=== PATIENT | male | born 1945 | race Caucasian/White ===

== ENCOUNTER → 2016-07-28 | Day surgery (SDC) | payer OTHER ==
[~2016-07-28] VITALS: Ht 170.2 cm; Wt 80.0 kg
[~2016-07-28] MED LIST: ACET-1311 PO; ACETAMINOPHEN 325 MG TAB PO PRN; ARTIOIN OP; ASPI81TA28 PO; ASPIRIN 81 MG CHEW ONE; ATORVASTATIN 40 MG TAB PO SCH; BUPR75TA20 PO; CHOL1000 PO; FENTANYL CITRATE INJ 50 MCG/1 ML 2 ML VIAL ONE; FINA5TAB PO; FLUT0.15 NAE; FURO-85 PO; GABA-113 PO; HEPARIN SOD (PORCINE) 1000 UNIT/ML 10 ML VIAL ONE; HYDR25TA5 PO; LOSA50TA6 PO; LPT40 PO; MELA1TAB5 PO; METO100T44 PO; MIDAZOLAM HCL 1 MG/ML 2ML VIAL ONE; NITROGLYCERIN/D5W 100MCG/ML 20ML SYR ONE; NiCARDipine HCL INJ 2.5 MG/ML 10 ML AMP ONE; ONDANSETRON INJ 2 MG/ML 2 ML VIAL IV PRN; SERT-234 PO; SODIUM CHLORIDE 0.9% 1000ML 1,000 ML IV SCH; SODIUM CHLORIDE 0.9% 1000ML 250 ML IV PRN; SYMIN/8045 NEB; VNTHFA/IN INH
[2016-07-28 07:00] VITALS: BP 162/84; PULSE 64; TEMP 36.3; O2SAT 96; Ht 170.2 cm; Wt 80.0 kg
[2016-07-28 07:49] LABS: HEMATOCRIT 41.2 % (42-52); MEAN CELL VOLUME 89.6 fL (80-100); MEAN CORPUSCULAR HEMOGLOBIN 31.7 pg (25-34); MEAN PLATELET VOLUME 9.2 fL (7.4-10.4); PLATELET COUNT 161 K/uL (130-400); WHITE BLOOD COUNT 7.11 K/uL (4.8-10.8)
[2016-07-28 07:52] LABS: MEAN CORPUSCULAR HGB CONC 35.4 g/dl (32-36)
--- NOTE | 2016-07-28 07:56 | Procedure Note ---
Pre-Mod Sedation Assessment General Date of Moderate Sedation: Jul 28, 2016. Vital Signs: Vital Signs Past 12 Hours Date Time Temp Pulse Resp B/P Pulse Ox O2 Delivery O2 Flow Rate FiO2 07/28/16 07:00 36.3 64 18 162/84 96 Room Air Review Cardiovascular: regular rate, rhythm Abdomen: soft Lungs: lungs clear Pre-Sedation Airway Assessment Oral Cavity: Dentures Short Thick Neck: No Hx of Sleep Apnea: No Smoking Status: Former Smoker Procedure Planning Contraindications-for Mod Sed: None Yes Notes The planned sedation has been discussed with the patient and consent obtained. I have identified the patient, determined the appropriateness of sedation and have assessed the patient immediately prior to the procedure. All medicine(s) and interventions are by my order.
--- NOTE | 2016-07-28 07:57 | History & Physical Bridge Note ---
H&P Re-Evaluation Bridge Note: I have examined the patient, reviewed the History & Physical and in the interval since the performance of the History & Physical I have noted the following changes of clinical significance: He feels no significant improvement on lasix, but did lose 2.5 lbs. Otherwise, No changes noted
[2016-07-28 07:58] LABS: PROTHROMBIN TIME (PATIENT) 10.7 SECONDS (9.0-12.0)
[2016-07-28 09:04] LABS: BUN/CREATININE RATIO 16.2 (10-20); CALCIUM 8.5 mg/dl (8.5-10.1); CREATININE 1.3 mg/dl (0.60-1.40); MAGNESIUM 2.6 mg/dl (1.8-2.4); POTASSIUM 4.5 mmol/L (3.5-5.1)
[2016-07-28 09:37] LABS: ISTAT ARTERIAL BLOOD GAS HCO3 26 meq/L (19-24); ISTAT ARTERIAL BLOOD GAS PCO2 40 mmHg (35-46); ISTAT ARTERIAL BLOOD GAS PO2 79 mmHg (80-95); ISTAT ARTERIAL BLOOD GAS pH 7.41 (7.35-7.45); ISTAT CARBON DIOXIDE 27 mEq/l (24-31)
[2016-07-28 09:37] LABS: ISTAT ARTERIAL BLOOD GAS HCO3 30 meq/L (19-24); ISTAT ARTERIAL BLOOD GAS PCO2 53 mmHg (35-46); ISTAT ARTERIAL BLOOD GAS PO2 < 32 mmHg (80-95); ISTAT ARTERIAL BLOOD GAS pH 7.36 (7.35-7.45); ISTAT CARBON DIOXIDE 31 mEq/l (24-31)
[2016-07-28 09:37] LABS: ISTAT ARTERIAL BLOOD GAS HCO3 28 meq/L (19-24); ISTAT ARTERIAL BLOOD GAS PCO2 52 mmHg (35-46); ISTAT ARTERIAL BLOOD GAS PO2 35 mmHg (80-95); ISTAT ARTERIAL BLOOD GAS pH 7.35 (7.35-7.45); ISTAT CARBON DIOXIDE 30 mEq/l (24-31)
[2016-07-28 09:44] LABS: THYROID STIMULATING HORMONE 1.27 uIu/ml (0.300-4.500)
--- NOTE | 2016-07-28 10:20 | Procedure Note ---
Post-Mod Sedation Assessment General Date of Moderate Sedation Jul 28, 2016. Vital Signs: Vital Signs Past 12 Hours Date Time Temp Pulse Resp B/P Pulse Ox O2 Delivery O2 Flow Rate FiO2 07/28/16 10:15 63 18 144/70 95 Room Air 07/28/16 10:02 64 18 122/72 95 Room Air 07/28/16 09:57 68 18 126/71 94 Room Air 07/28/16 09:52 66 18 129/76 95 Room Air 07/28/16 09:47 64 18 139/73 97 Nasal Cannula 4 07/28/16 09:42 66 18 140/83 98 Nasal Cannula 4 07/28/16 07:00 36.3 64 18 162/84 96 Room Air Review - Discharge Criteria Vital Signs Stable: Yes Alert/Oriented/Conversant: Yes Returned to Baseline Mental St: Yes Nausea Absent/Minimal: Yes Pain/Discomfort/Absent/Minimal: Yes Normal/Baseline Respirations: Yes Active Bleeding?: No
--- NOTE | 2016-07-28 10:36 | Cardiac Catheterization ---
Procedure Note Procedure Date Jul 28, 2016. Pre-Procedure Diagnosis Cardiomyopathy AUC Score 7 Post-Procedure Diagnosis Severe CAD, Elevated Intracardiac Pressures Procedure(s) Performed Coronary Angiography, Left Heart Cath, Right Heart Cath Slot Operations Director Dr. Pablo Clothing Supervisor(s) Salazar Estimated Blood Loss < 25 ml Medication(s) Fentanyl, Heparin, Nicardipine, Versed, Lidocaine 1% Summary of Findings Coronary angiography: 1. Left main coronary artery: The LMCA was heavily calcified. The mid to distal left main coronary artery tapered to 60% stenosis. 2. Left anterior descending: The proximal to mid LAD was heavily calcified. Ostial LAD 60% followed by proximal 40%. Mid LAD 95%. Small caliber D1 without significant CAD. Very small caliber D2 with ostial 70%. 3. Circumflex: Ostial circumflex 60%. Large OM1 with lateral branch. Ostial OM1 90%. 4. Ramus intermedius: Medium caliber ramus intermedius without significant CAD 5. Right coronary artery: The RCA is medium caliber and dominant. Distal RCA 50%. Left heart catheterization: 1. Left ventriculography was not performed as patient had recent echocardiogram. 2. No aortic stenosis. Peak to peak gradient across the aortic valve was 0 mmHg. 3. Mildly elevated LVEDP; 13 mmHg. Right heart catheterization: 1. Mildly elevated pulmonary capillary wedge pressure. V-wave 18 with a mean of 14 mmHg. 2. No significant pulmonary hypertension PA pressure 29/11 with a mean of 17 mmHg. 3. Right ventricular pressure 30/7 mmHg. 4. Right atrial pressure was normal. A-wave 11; V-wave 8; mean 7 mmHg. 5. Cardiac output via thermodilution was 4.4 L/min, with a cardiac index of 2.3 L/min/m2. 6. PVR 0.68 Wood units. Sedation start time: 09:03 AM Sedation end time: 09:42 AM Procedural details: 1. Coronary angiography was performed via the right radial artery without known complication. 2. Right heart catheterization was performed via the right antecubital vein without known complication. Impression: 1. Severe multivessel CAD including distal LM CA as noted above. Heavily calcified LMCA, LAD, and proximal RCA. 2. Mildly elevated left-sided filling pressures. 3. No aortic stenosis. 4. No significant pulmonary hypertension. Plan: 1. CT surgery evaluation for possible coronary artery bypass grafting. 2. Continue low-dose diuretic. 3. Risk factor modification. High-dose statin therapy. Hemodynamics Rest Ao: 133/67 Final Ao: 138/65 LV: 136/5 with LVEDP 13 Recommendations CABG Specimens None Radiation Exposure (mGy) 1018 mGy. 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 Cardiac Status Clinical evaluation leading to the procedure CAD Presntation: No Sxs, no angina Anginal Classification: No symptoms Heart Failure: Yes, NYHA Class: CCS III Cardiogenic Shock w/in 24Hrs: No Cardiac Arrest w/in 24Hrs: No Imaging studies past 6 months: Yes (echo) Stress studies past 6 months: No Standard Exercise Stress Test: No Stress Echocardiogram: No Stress Testing w/SPECT MPI: No Cardiac CTA: No Coronary Anatomy Dominant: Right Left Main (% Stenosis): Distal (60%) LAD (% Stenosis): Ostial (60%), Proximal (40%), Mid (95%) D1 (% Stenosis): Normal D2 (% Stenosis): Ostial (70%) Circumflex (% Stenosis): Ostial (60%) OM1 (% Stenosis): Ostial (90%) RCA (% Stenosis): Distal (50%) Ramus (% Stenosis): Normal Left Ventricular Angiography EF (%): n/a Diagnostic Physician's Name: Bhargav Pablo MD Status: Elective Closure Device Percutaneous Entry Location: Radial Closure Device: Radial Band Recommendations: CABG
--- NOTE | 2016-07-28 10:44 | Discharge Instructions ---
Discharge Instructions Date of Service Jul 28, 2016. Visit Reason for Visit: Heart catheterization for heart failure and cardiomyopathy. Discharge Discharge Diagnosis / Problem: 1. Severe multivessel coronary artery disease. Discharge Goals Goal(s): Diagnostic testing Activity Recommendations Activity Limitations: per Instructions/Follow-up section Anesthesia . Post Anesthesia Instructions: If you have had General Anesthesia or IV Sedation: * Do not drive today. * Resume driving when surgeon permits. * Do not make important decisions or sign legal documents today. * Call surgeon for: 1. Temperature elevations greater than 101 degrees F. 2. Uncontrollable pain. 3. Excessive bleeding. 4. Persistent nausea and vomiting. 5. Medication intolerance (nausea, vomiting or rash). * For nausea and vomiting use only clear liquids such as: tea, soda, bouillon until nausea subsides, then gradually increase diet as tolerated. * If you have any concerns or questions, call your surgeon's office. If physician is unavailable and it is an emergency, call 911 or go to the nearest emergency room. . Instructions / Follow-Up Instructions / Follow-Up 1. CT surgery consultation is being arranged at [facility]. They will call you with time/date of appointment. 2. Follow up with Dr. Pablo in 4-6 weeks (keep scheduled appointment). ACTIVITY RECOMMENDATIONS: Excess manipulation of the wrist should be avoided for the next 24-48 hours. * No lifting over 2 pounds (approximately a 1/2 gallon of milk) with the utilized arm for 24 hours. * No strenuous activity such as bowling or tennis for 3 days. * Keep the site of the procedure covered with a bandage for 24 hours. *You may shower the day after the procedure. Do not take a tub bath or submerge the puncture site in water for the next 3 days. *Do not operate any motorized equipment for 3 days. SPECIAL CARE INSTRUCTIONS: The site may be slightly bruised and sore following your procedure. Should any of the following occur, contact the DrSusan who performed your procedure. 1. Redness/inflammation, swelling, chills, or fever, or colored drainage at procedure site within 3-7 days after your procedure. 2. Coldness, discoloration, ongoing numbness, severe pain, or swelling. Expect mild tingling of hand and tenderness at the puncture site for up to three days. If this persists beyond three days, or other symptoms develop, notify the DrSusan who performed your procedure. BLEEDING: If the procedure site on your wrist begins to bleed, do not panic 1. Place 1 or 2 fingers firmly just slightly above the insertion site to stop the bleeding. You may be able to feel your pulse as you hold pressure. 2. Lift your finger after 5 minutes to see if the bleeding has stopped. 3. Once the bleeding has stopped, gently wipe the wrist area clean with a bandage. * If the bleeding from your wrist does not stop after 10 minutes, or if there is a large amount of bleeding or spurting, call 911 (do not drive yourself to the hospital). SKIN IRRITATION: * You may experience some redness and/or swelling in the area where radiation was administered. If any skin irritation occurs, please contact your family physician. FOLLOW UP VISIT: Keep any scheduled doctor appointments. Diet Recommendations Recommended Home Diet: low cholesterol Procedures Procedures Performed: 1. Coronary angiography and left heart catheterization 2. Right heart catheterization Pending Studies Studies pending at discharge: no Medical Emergencies . Who to Call and When: Medical Emergencies: If at any time you feel your situation is an emergency, please call 911 immediately. . Non-Emergent Contact Non-Emergency issues call your: Meter Reader Inspector . . "Provider Documentation" section prepared by Bhargav Regan.
[2016-07-28 12:00] VITALS: BP 122/65; PULSE 72; O2SAT 97
== END | disposition home or self-care (01) ==
LOC: C.CATH 07:02
PROVIDERS: ATTEND Internal Medicine Cardiovascular Disease
DX: I42.9 Cardiomyopathy, unspecified (principal); I25.10 Atherosclerotic heart disease of native coronary artery without angina pectoris; I50.21 Acute systolic (congestive) heart failure; E78.5 Hyperlipidemia, unspecified; I10 Essential (primary) hypertension; F32.9 Major depressive disorder, single episode, unspecified; J44.9 Chronic obstructive pulmonary disease, unspecified; Z79.82 Long term (current) use of aspirin; Z79.899 Other long term (current) drug therapy